=== PATIENT | female | born 1990 | race Caucasian/White ===

== ENCOUNTER → 2025-08-16 09:00 | Outpatient (CLI) | payer OTHER, SELFPAY ==
[2025-08-16 10:39] LABS: Natera Collection Specimen Collected
[2025-08-16 10:59] LABS: Free T4, Direct Thyroxine 1.30 ng/dL (0.78-2.19)
[2025-08-16 11:13] LABS: Thyroid Stimulating Hormone 2.88 uIU/mL (0.47-4.68)
== END ==
PROVIDERS: Referring Provider Obstetrics & Gynecology; Visit Provider Obstetrics & Gynecology
DX: Z34.81 Encounter for supervision of other normal pregnancy, first trimester (principal); E03.9 Hypothyroidism, unspecified; Z34.80 Encounter for supervision of other normal pregnancy, unspecified trimester
CPT/HCPCS: 84439; 84443; 86850; 86900; 86901

== ENCOUNTER → 2025-09-13 10:22 | Outpatient (CLI) | payer OTHER, SELFPAY ==
[2025-09-17 14:36] LABS: Gest Age on Col Date 17.7 weeks (.); OSBR Risk 1IN 10000 (.)
== END ==
PROVIDERS: Referring Provider Obstetrics & Gynecology; Visit Provider Obstetrics & Gynecology
DX: Z34.82 Encounter for supervision of other normal pregnancy, second trimester (principal)
CPT/HCPCS: 36415; 82105

== ENCOUNTER → 2025-09-26 15:12 | Outpatient (CLI) | payer OTHER, SELFPAY ==
--- NOTE | 2025-09-26 15:13 | DI.US.S_ITS ---
PROCEDURE: US OB >= 14 WEEKS FETUS INDICATIONS: 20 wk anatomy scan TECHNIQUE: Real-time scanning was performed of the fetus, with image documentation and biometric measurements. Calculations are based on a working YOSEPH of 02/16/2026. COMPARISON: None. FINDINGS: General: A single living intrauterine gestation is present. Presentation: Vertex. Placenta: Placental position is posterior , without previa. Amniotic fluid index: 18.8 cm, normal range is 5-24 cm. Single deepest vertical pocket is 6.0 cm. heart rate: 130 beats per minute. Maternal cervical canal: 4.1 cm long. Normal lower limit is 2.5 cm. biometrics: Biparietal diameter: 5.0 cm, 21 week 0 day Head circumference: 17.4 cm, 19 week 6 day Abdominal circumference: 15.3 cm, 20 week 4 day Femur length: 3.0 cm, 19 week 2 day Clinically estimated gestational age: 19 week 4 day Composite gestational age from present scan: 20 week 1 day Estimated weight and percentile: 324 g, 69% Anatomic survey: Neuro: Ventricles are non-dilated at less than 10 mm. Cisterna magna is normal at 3-11 mm. Cerebellum is normal in size and morphology. Nuchal skin fold: Normal at less than 6 mm between 14-21 weeks gestational age. Face: Nose and lips, facial profile are normal. Spine: No evidence for spina bifida. Heart: 4-chambered heart is present, with normal ventricular outflow tracts. Diaphragm: Diaphragm is intact. Stomach: Left-sided stomach is present. Kidneys: No hydronephrosis. Normal is less than 5 mm in 2nd trimester, less than 7 mm in 3rd trimester. Cord: 3-vessel cord has orthotopic insertion. Bladder: Normal in size. Extremities: All 4 extremities identified. IMPRESSION: Single live intrauterine consistent with 20 week 1 day gestation. Normal anatomic survey Approved by: Gregory Sidhu M.D. on 09/27/2025 at 15:48
== END ==
PROVIDERS: Referring Provider Obstetrics & Gynecology; Visit Provider Obstetrics & Gynecology
DX: Z34.82 Encounter for supervision of other normal pregnancy, second trimester (principal); Z3A.20 20 weeks gestation of pregnancy
CPT/HCPCS: 76811